=== PATIENT | female | born 1980 | race Caucasian/White ===

== ENCOUNTER 2021-07-31 06:28 | Emergency (ER) | payer OTHER ==
[2021-07-31 07:28] LABS: HEMOGLOBIN 11.8 gm/dl (12.3-15.3); RED BLOOD COUNT 3.69 M/UL (4.00-5.10); WHITE BLOOD COUNT 2.5 K/UL (4.5-11.0)
[2021-07-31 07:57] LABS: BUN/CREATININE RATIO 13 (0-10)
== END 2021-07-31 11:26 | disposition home or self-care (01) ==
LOC: ER1 06:28
PROVIDERS: Physician Assistant Medical
DX: U07.1 COVID-19 (principal); R55 Syncope and collapse; E86.0 Dehydration; F17.200 Nicotine dependence, unspecified, uncomplicated
CPT/HCPCS: 71045; 80053; 80307; 81001; 82550; 82553; 83874; 84484; 85025; 87086; 93005; 99284; G0480; U0002